=== PATIENT | female | born 1980 | race Caucasian/White ===

== ENCOUNTER → 2019-06-21 13:17 | Outpatient (CLI) | payer BC, SELFPAY ==
--- NOTE | 2019-06-21 | US_ITS ---
PROCEDURE: MM DIG MAMM BI DX W/CAD CLINICAL INDICATION: ABNORMAL MAMM Positive family history, palpable abnormality left breast upper outer aspect COMPARISON: US BREAST RT COMPLETE from 06/21/2019 US BREAST LT COMPLETE from 06/21/2019 TECHNIQUE: Standard CC and MLO images were obtained. R2 CAD reviewed. FINDINGS: There is average fibroglandular tissue. There are at scattered asymmetries in both breasts. These areas do appear to compress out as fibroglandular tissue. Palpable abnormality is reported in the upper outer aspect of the left breast. A marker is placed in this region. No mammographic abnormality evident in this area. There is a small amount of axillary breast tissue on the left Right breast ultrasound: At 3 o'clock there is a 4 mm cyst. No other significant anomalies are evident. Left breast ultrasound: No sonographic abnormalities evident in the region of the reported palpable abnormality. No cystic or solid lesions of the left breast. There are small bilateral axillary lymph nodes IMPRESSION: No suspicious abnormalities apparent. There are scattered areas of asymmetric density in both breasts. In lieu of the patient's positive family history, would suggest a bilateral 6 month mammographic follow-up to confirm stability of the asymmetries. BI-RAD Category: 3 Probably Benign Finding Short Term Follow-up FOLLOW-UP: 6M 6Month Follow-up (A letter has been sent to the patient regarding results of the study.) Dictated by: Venkatesh Stahl MD 06/28/2019 13:30 Electronically signed by Venkatesh Stahl MD in [place] 06/28/2019 13:30
== END ==
PROVIDERS: PCP Obstetrics & Gynecology; Visit Provider Obstetrics & Gynecology
DX: R92.8 Other abnormal and inconclusive findings on diagnostic imaging of breast (principal)
CPT/HCPCS: 76641; 77066